=== PATIENT | female | born 1970 | race Caucasian/White ===

== ENCOUNTER 2020-02-10 12:04 | Outpatient (CLI) | payer OTHER, SELFPAY ==
--- NOTE | ~2020-02-10 | MMUS_ITS ---
EXAMINATION: MM diagnostic nany BI w amie, US breast LT limited HISTORY: Left breast lump TECHNIQUE: Full field and spot ML, MLO and cc 3-D tomosynthesis images of the left breast and ML, MLO and cc 3-D Tomosynthesis views of the right breast were performed and synthetic 2-D images were gene rated. CAD analysis was submitted and interpreted. High resolution upper inner and lower inner quadra nt left breast ultrasound was performed. COMPARISON: 10/23/2009 bilateral digital screening mammogram BREAST PARENCHYMAL COMPOSITION: The breasts are heterogeneously dense, which may obscure small masses . FINDINGS: MAMMOGRAPHIC FINDINGS: At mid to posterior breast depth there is an irregular spiculated approximately 2.8 cm mass in the mi d inner aspect of the left breast at approximately 9:00 position. More posteriorly there is an approx imately 5 mm mass. Scattered bilateral benign-appearing calcifications are noted. No other breast masses evident. No ski n thickening or retraction is noted. ULTRASOUND: At 9:00 6 cm from the nipple there is an irregular hypoechoic mass with posterior shadowing measuring up to 2.8 cm dimension, which are suspicious for malignancy. There are multiple smaller hypoechoic lesions at 8:00 7 cm from the nipple in the more posterior aspe ct of the left breast , which may represent satellite lesions or metastatic lymph nodes, measuring up to approximately 9 mm maximal dimension. IMPRESSION: 1. Approximately 2.8 cm 9:00 irregular shadowing mass of left breast, highly suggestive of malignancy . Additional smaller satellite masses. 2. Ultrasound guided biopsy is recommended for the 9:00 mass. BI-RADS category 5, highly suggestive of malignancy Dr. Yeung discussed the mammographic and ultrasound findings highly suggestive of malignancy with the patient in the ultrasound department on 02/10/2020 at 1420 hours. I recommended ultrasound-guided biop sy. Reviewed, dictated and finalized at location A. IMPRESSION: 1. Approximately 2.8 cm 9:00 irregular shadowing mass of left breast, highly rasmussen ggestive of malignancy. Additional smaller satellite masses. 2. Ultrasound guided biopsy is recommended for the 9:00 mass. BI-RADS category 5, highly suggestive of malignancy Dr. Yeung discussed the mammographic and ultrasound findings highly suggestive o f malignancy with the patient in the ultrasound department on 02/10/2020 at 1420 hours. I recommended ultrasound-guided biopsy.
== END 2020-02-10 12:05 | disposition home or self-care (01) ==
PROVIDERS: PCP Family Medicine; Visit Provider Family Medicine
DX: N63.20 Unspecified lump in the left breast, unspecified quadrant (principal); R92.8 Other abnormal and inconclusive findings on diagnostic imaging of breast
CPT/HCPCS: 76642; 77062; 77066; G0279